=== PATIENT | female | born 1980 | race Caucasian/White ===

== ENCOUNTER 2019-10-11 12:33 | Emergency (ER) | payer OTHER ==
[~2019-10-11] VITALS: Ht 167.6 cm; Wt 90.7 kg
[2019-10-11 12:43] VITALS: Ht 167.6 cm; Wt 90.7 kg
[2019-10-11 15:32] VITALS: BP 130/74
== END 2019-10-11 15:35 | disposition home or self-care (01) ==
LOC: ED 12:33
DX: T81.33XA Disruption of traumatic injury wound repair, initial encounter (principal); Z98.890 Other specified postprocedural states
CPT/HCPCS: J3010